=== PATIENT | female | born 1980 | race Caucasian/White ===

== ENCOUNTER → 2020-07-12 13:47 | Outpatient (BNVA) | payer OTHER, SELFPAY | PROVIDERS: PCP Nurse Practitioner Family; Visit Provider Physician Assistant | DX: S46.209A Unspecified injury of muscle, fascia and tendon of other parts of biceps, unspecified arm, initial encounter (principal) | CPT/HCPCS: 99202 ==

== ENCOUNTER 2020-07-18 18:44 | Outpatient (REF) | payer OTHER, SELFPAY ==
--- NOTE | ~2020-07-18 | MR_ITS ---
EXAMINATION: MR ELBOW WITHOUT CONTRAST, RIGHT CLINICAL INFORMATION: Right elbow weakness and popping. Symptoms for 1 week. COMPARISON: None TECHNIQUE: Multisequence MR images of the right elbow were obtained without contrast on a high-field strength scanner. FINDINGS: Ulnar Collateral Ligament: Intact. Common Flexor Tendon: Minimal increased T2 signal within the common flexor tendon, consistent with minimal tendinosis. Radial Collateral Ligament: Intact. Common Extensor Tendon: Intact. Biceps/Triceps Tendon: Prominent edema within the brachialis muscle distally, consistent with a strain/partial tear. No measurable defect. The distal biceps and distal triceps tendons are intact. Articular Cartilage/Bone: Intact. Ulnar Nerve: Intact. Joint Fluid/Soft Tissues: Within normal limits. MR/MR elbow RT wo con IMPRESSION: 1. Prominent edema within the distal brachialis muscle consistent with a strain/partial tear. No measurable defect. 2. Minimal common flexor tendinosis.
== END 2020-07-18 18:45 | disposition home or self-care (01) ==
LOC: HO.MRI 18:44
PROVIDERS: PCP Nurse Practitioner Family; Visit Provider Physician Assistant
DX: S46.209A Unspecified injury of muscle, fascia and tendon of other parts of biceps, unspecified arm, initial encounter (principal)
CPT/HCPCS: 73221

== ENCOUNTER 2020-09-05 15:30 | Outpatient (RCR) | payer OTHER, SELFPAY | END 2020-11-06 11:49 | disposition other institution (70) | LOC: HO.OT 15:30 | PROVIDERS: PCP Nurse Practitioner Family; Visit Provider Physician Assistant | DX: S46.211A Strain of muscle, fascia and tendon of other parts of biceps, right arm, initial encounter (principal) | CPT/HCPCS: 97110; 97166 ==

== ENCOUNTER → 2020-10-02 14:05 | Outpatient (BNVA) | payer OTHER, SELFPAY | PROVIDERS: PCP Nurse Practitioner Family; Visit Provider Physician Assistant | DX: S46.219D Strain of muscle, fascia and tendon of other parts of biceps, unspecified arm, subsequent encounter (principal) | CPT/HCPCS: 99212 ==